=== PATIENT | female | born 1990 | race Caucasian/White ===

== ENCOUNTER 2019-09-10 22:38 | Emergency (ER) | payer SELFPAY ==
[2019-09-10] MEDS ORDERED: ACETAMINOPHEN 500 MG TAB ONE (23:32)
[2019-09-10] MEDS ORDERED: ASPIRIN 325 MG TAB ONE (23:32)
[2019-09-11 00:19] LABS: Urine Amorphous Sediment 2+ /HPF (NONE SEEN); Urine Bacteria <20 /HPF (<20); Urine Culture Reflex Order NOT NEEDED; Urine RBC <5 /HPF (NONE SEEN)
--- NOTE | 2019-09-11 00:40 | EDPHYS ---
Physician Documentation [facility] Name: Olamide Ponce Age: 29 yrs Sex: Female : 1990 Arrival Date: 09/10/2019 Time: 22:39 Bed 24 Private MD: ED Physician Nroth Wills HPI: 09/10 23:54 This 29 yrs old Female presents to ER via EMS with complaints of High Blood snw Pressure. 23:54 The patient has elevated blood pressure and discovered this [facility]. Onset: The snw symptoms/episode began/occurred 3 day(s) ago, and became persistent. Associated signs and symptoms: Pertinent positives: chest pain, headache. Severity of symptoms: At its worst the blood pressure was moderate, in the emergency department the blood pressure is improved. It is unknown whether or not the patient has had similar symptoms in the past. It is unknown whether or not the patient has recently seen a physician. 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 - Social history:: Smoking status: Patient uses tobacco products, smokes one-half pack cigarettes per day. - Ebola Screening: : No symptoms or risks identified at this time. ROS: 23:51 Eyes: Negative for injury, pain, redness, and discharge, ENT: Negative for injury, snw pain, and discharge, Neck: Negative for injury, pain, and swelling. 23:51 Respiratory: Negative for shortness of breath, cough, wheezing, and pleuritic chest pain, Abdomen/GI: Negative for abdominal pain, nausea, vomiting, diarrhea, and constipation, Back: Negative for injury and pain, : Negative for injury, bleeding, discharge, and swelling, MS/Extremity: Negative for injury and deformity, Skin: Negative for injury, rash, and discoloration. 23:51 Constitutional: Positive for malaise. 23:51 Cardiovascular: Positive for chest pain, of the chest. 23:51 Neuro: Positive for headache. Exam: 23:51 Constitutional: This is a well developed, well nourished patient who is awake, alert, snw and in no acute distress. Head/Face: Normocephalic, atraumatic. Eyes: Pupils equal round and reactive to light, extra-ocular motions intact. Lids and lashes normal. Conjunctiva and sclera are non-icteric and not injected. Cornea within normal limits. Periorbital areas with no swelling, redness, or edema. ENT: Nares patent. No nasal discharge, no septal abnormalities noted. Tympanic membranes are normal and external auditory canals are clear. Oropharynx with no redness, swelling, or masses, exudates, or evidence of obstruction, uvula midline. Mucous membranes moist. Neck: Trachea midline, no thyromegaly or masses palpated, and no cervical lymphadenopathy. Supple, full range of motion without nuchal rigidity, or vertebral point tenderness. No Meningismus. Chest/axilla: Normal chest wall appearance and motion. Nontender with no deformity. No lesions are appreciated. Cardiovascular: Regular rate and rhythm with a normal S1 and S2. No gallops, murmurs, or rubs. Normal PMI, no JVD. No pulse deficits. Respiratory: Lungs have equal breath sounds bilaterally, clear to auscultation and percussion. No rales, rhonchi or wheezes noted. No increased work of breathing, no retractions or nasal flaring. Abdomen/GI: Soft, non-tender, with normal bowel sounds. No distension or tympany. No guarding or rebound. No evidence of tenderness throughout. Back: No spinal tenderness. No costovertebral tenderness. Full range of motion. Skin: Warm, dry with normal turgor. Normal color with no rashes, no lesions, and no evidence of cellulitis. MS/ Extremity: Pulses equal, no cyanosis. Neurovascular intact. Full, normal range of motion. Neuro: Awake and alert, GCS 15, oriented to person, place, time, and situation. Cranial nerves II-XII grossly intact. Motor strength 5/5 in all extremities. Sensory grossly intact. Cerebellar exam normal. Normal gait. Psych: Awake, alert, with orientation to person, place and time. Behavior, mood, and affect are within normal limits. Vital Signs: 22:44 BP 138 / 87; Pulse 91; Resp 16; Temp 98.8(O); Pulse Ox 99% on R/A; Weight 65.77 kg; tr5 Height 5 ft. 8 in. (172.72 cm); 09/11 00:02 BP 121 / 86; Pulse 63; Resp 16; Pulse Ox 100% on R/A; Pain 07/04; fu 00:40 BP 135 / 87; fu 09/10 22:44 Body Mass Index 22.05 (65.77 kg, 172.72 cm) tr5 MDM: 09/10 22:49 Patient medically screened. snw 09/11 00:41 Data reviewed: vital signs, nurses notes. Data interpreted: Pulse oximetry: on room air snw is 100 %. Interpretation: normal. Counseling: I had a detailed discussion with the patient and/or guardian regarding: the historical points, exam findings, and any diagnostic results supporting the discharge/admit diagnosis, the presence of at least one elevated blood pressure reading (>120/80) during this emergency department visit, lab results, the need for outpatient follow up, to return to the emergency department if symptoms worsen or persist or if there are any questions or concerns that arise at home. Special discussion: I have referred the patient to see his PCP for further evaluation of high blood pressure. Based on the history and exam findings, there is no indication for further emergent testing or inpatient evaluation. I discussed with the patient/guardian the need to see the primary care provider for further evaluation of the symptoms. 09/10 23:09 Order name: Urine Microscopic Only snw 09/10 23:10 Order name: Urine Microscopic Only; Complete Time: 00:29 EDMS 09/10 23:46 Order name: Urine Dipstick--Ancillary (enter results) em1 09/10 23:46 Order name: Urine --Ancillary (enter results) em1 09/10 22:56 Order name: EKG; Complete Time: 22:57 snw 09/10 22:56 Order name: EKG - Nurse/Tech; Complete Time: 23:27 snw 09/10 23:09 Order name: Urine Test (obtain specimen); Complete Time: 23:36 snw 09/10 23:09 Order name: Urine Dipstick-Ancillary (obtain specimen); Complete Time: 23:36 snw 09/11 00:01 Order name: BP Recheck: q 30 min; Complete Time: 00:57 snw Administered Medications: 09/10 23:35 Drug: Aspirin 325 mg Route: PO; 09/11 00:00 Follow up: Response: No adverse reaction fu 09/10 23:35 Drug: Tylenol 500 mg Route: PO; 09/11 00:00 Follow up: Response: No adverse reaction Disposition: 06:14 Co-signature as Attending Physician, [place] MD I agree with the assessment and kdr plan of care. Disposition: 09/11/19 00:39 Discharged to Home. Impression: Headache, Hypertension. - Condition is Stable. - Discharge Instructions: Diet and Hepatitis, Cooking with Less Salt, General Headache Without Cause, Hypertension, Hypothyroidism, Rehydration, Adult, Form - Blood Pressure Record Sheet. - Family Work Release, Medication Reconciliation Form, Thank You Letter, Antibiotic Education, Prescription Opioid Use form. - Follow up: Private Physician; When: 2 - 3 days; Reason: Recheck today's complaints, Continuance of care, Re-evaluation by your physician. Follow up: Emergency Department; When: As needed; Reason: Worsening of condition. Signatures: Dispatcher [employer] EDDC [place] W[place] MD MD [facility] Velia Vu, RN CARDIOVASCULAR ICU-C RN CARDIOVASCULAR ICU-Csnw Barry Deleon RN RN fu Adarsh Guevara, RN RN tr5 Corrections: (The following items were deleted from the chart) 00:59 00:39 09/11/2019 00:39 Discharged to Home. Impression: Headache; Hypertension. fu Condition is Stable. Forms are Medication Reconciliation Form, Thank You Letter, Antibiotic Education, Prescription Opioid Use. Follow up: Private Physician; When: 2 - 3 days; Reason: Recheck today's complaints, Continuance of care, Re-evaluation by your physician. Follow up: Emergency Department; When: As needed; Reason: Worsening of condition. snw
--- NOTE | 2019-09-11 00:40 | ER ---
Nurse's Notes [facility] Name: Olamide Ponce Age: 29 yrs Sex: Female : 1990 Arrival Date: 09/10/2019 Time: 22:39 Bed 24 Private MD: Diagnosis: Headache;Hypertension Presentation: 09/10 22:40 Presenting complaint: EMS states: Patient is staying at [facility] rehab for care and tr5 is having some high blood pressure, anxiety and chest pain. Pt also complains of some headaches. Transition of care: patient was received from another setting of care (rehabilitation facility). Onset of symptoms was September 10, 2019. Risk Assessment: Do you want to hurt yourself or someone else? Patient reports no desire to harm self or others. Initial Sepsis Screen: Does the patient meet any 2 criteria? No. Patient's initial sepsis screen is negative. Does the patient have a suspected source of infection? No. Patient's initial sepsis screen is negative. Care prior to arrival: None. 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 - Social history:: Smoking status: Patient uses tobacco products, smokes one-half pack cigarettes per day. - Ebola Screening: : No symptoms or risks identified at this time. Screenin:30 Abuse screen: Denies threats or abuse. Nutritional screening: No deficits noted. fu Tuberculosis screening: No symptoms or risk factors identified. Fall Risk None identified. Assessment: 23:00 General: Appears in no apparent distress. Behavior is calm, cooperative, appropriate fu for age, Denies fever, feeling ill, fatigue, chills. Pain: Complains of pain in haed Pain does not radiate. Pain currently is 10 out of 10 on a pain scale. Quality of pain is described as aching, Pain began 4 hours ago. Is intermittent. Neuro: Level of Consciousness is awake, alert, obeys commands, Oriented to person, place, time, situation, Mechanical Laboratory Technician are equal bilaterally Moves all extremities. Gait is steady, Speech is normal, Reports headache Denies weakness blurred vision dizziness, difficulty swallowing. Cardiovascular: Capillary refill < 3 seconds. Respiratory: Airway is patent Breath sounds are clear bilaterally. GI: Bowel sounds present X 4 quads. 23:10 Cardiovascular: Reports chest pain, since 4 days ago. fu 09/11 00:00 Reassessment: No changes from previously documented assessment. Patient and/or family fu updated on plan of care and expected duration. Pain level reassessed. Patient is alert, oriented x 3, equal unlabored respirations, skin warm/dry/pink. Vital Signs: 09/10 22:44 BP 138 / 87; Pulse 91; Resp 16; Temp 98.8(O); Pulse Ox 99% on R/A; Weight 65.77 kg; tr5 Height 5 ft. 8 in. (172.72 cm); 09/11 00:02 BP 121 / 86; Pulse 63; Resp 16; Pulse Ox 100% on R/A; Pain 8/10; fu 00:40 BP 135 / 87; fu 09/10 22:44 Body Mass Index 22.05 (65.77 kg, 172.72 cm) tr5 ED Course: 09/10 22:39 Patient arrived in ED. tr5 22:42 Triage completed. tr5 22:44 Barry Deleon, RN is Primary Nurse. fu 22:44 Arm band placed on. tr5 22:49 Velia Vu FNP-C is PSYCHIATRICP. snw 22:49 [place] W[place] MD is Attending Physician. snw 23:36 Urine Microscopic Only Sent. lt1 09/11 00:00 No provider procedures requiring assistance completed. Patient did not have IV access fu during this emergency room visit. 00:57 Patient has correct armband on for positive identification. Bed in low position. Side fu rails up X 1. Administered Medications: 09/10 23:35 Drug: Aspirin 325 mg Route: PO; fu 09/11 00:00 Follow up: Response: No adverse reaction fu 09/10 23:35 Drug: Tylenol 500 mg Route: PO; fu 09/11 00:00 Follow up: Response: No adverse reaction fu Outcome: 00:39 Discharge ordered by . snw 00:55 Discharged to Rehab Facility fu 00:55 Condition: stable 00:55 Discharge instructions given to patient, Instructed on discharge instructions, Demonstrated understanding of instructions. 00:59 Patient left the ED. Signatures: Velia Vu, BOX STACKER-C BOX STACKER-CsnBarry Luna RN RN Myriam Kohli lt1 Adarsh Guevara RN RN tr5 Corrections: (The following items were deleted from the chart) 09/10 22:55 22:48 General: [facility] emergency department
[2019-09-11 01:21] LABS: Urine Blood NEGATIVE (NEG); Urine Glucose NEGATIVE (NEG); Urine Protein NEGATIVE (NEG); Urine Specific Gravity 1.015 (1.005-1.030)
[2019-09-11 02:47] VITALS: TEMP 98.8
[2019-09-11 02:48] VITALS: O2SAT 100
[2019-09-11 02:49] VITALS: BP 135/87
--- NOTE | 2019-09-11 12:54 | EKG ---
Test Date: 2019-09-10 Test Time: 23:16:43 [place]: OLESYAT MEASUREMENT RESULTS: Intervals: Rate: 69 AK: 116 QRSD: 110 QT: 390 QTc: 417 [place]: P: 42 AK: 116 QRS: 45 T: 39 INTERPRETIVE STATEMENTS: Normal sinus rhythm normal ECG No previous ECG available for comparison Electronically Signed On 09-11-19 12:54:08 CDT by Kris Oneil
== END 2019-09-11 00:59 | disposition home or self-care (01) ==
LOC: ER 22:38
DX: I10 Essential (primary) hypertension (principal); R51 Headache; F17.210 Nicotine dependence, cigarettes, uncomplicated
CPT/HCPCS: 81003; 81015; 81025; 93005; 99283